=== PATIENT | female | born 1980 ===

== ENCOUNTER → 2017-10-08 | Outpatient (CLI) | payer OTHER | END | disposition home or self-care (01) | LOC: RX STUDY 09:15 | DX: N93.0 Postcoital and contact bleeding (principal) ==

== ENCOUNTER 2025-03-08 10:32 | Outpatient (CLI) | payer OTHER | END 2025-03-08 10:39 | disposition home or self-care (01) | LOC: SONOGRAMA 10:32 | PROVIDERS: ATTEND Pathology Anatomic Pathology | DX: D34 Benign neoplasm of thyroid gland (principal); E06.3 Autoimmune thyroiditis; E04.2 Nontoxic multinodular goiter ==